=== PATIENT | male | born 1965 | race Caucasian/White ===

== ENCOUNTER 2023-07-13 07:57 | Emergency (ER) | payer OTHER, SELFPAY ==
[2023-07-13 08:06] VITALS: BP 148/101; PULSE 87; RESP 16; TEMP 36.6; O2SAT 97; BMI 32.2
--- NOTE | 2023-07-13 08:22 | ED.GENADULT ---
HPI - General Adult General Chief complaint: General Medical Stated complaint: Swelling in throat Time Seen by Provider: 07/13/23 08:08 Source: patient Mode of arrival: ambulatory Limitations: no limitations History of Present Illness HPI narrative: This is a 58-year-old male with history of diabetes, hypertension, hereditary angioedema with multiple intubations, tracheostomy with decannulation here with complaints of waking with feeling like his throat is swelling. He denies any recent URI symptoms. He denies any difficulty swallowing or breathing. He does feel that his voice is hoarse which is not his baseline. Additionally patient is on daily danazol. He has an appointment in August for prophylactic medication for hereditary angioedema Related Data Previous Rx's Medication Instructions Recorded amoxicillin 500 mg capsule 500 mg PO BID #20 caps 07/13/23 Allergies Allergy/AdvReac Type Severity Reaction Status Date / Time nut - unspecified [nut] Allergy Unknown UNKNOWN Unverified 04/06/20 15:04 Review of Systems Review of Systems: Yes all other systems are reviewed and are negative Constitutional: Constitutional: Reports no additional constitutional complaints, Denies body ache(s), Denies chills, Denies fever(s), Denies headache(s) and Denies weakness Eyes: Eyes: Reports no additional eye complaints and Denies change in vision ENT: Reports system reviewed and no additional complaints, except as documented, Denies dizziness, Denies headache(s), Denies nasal congestion, Denies nasal discharge, Denies neck pain and Reports sore throat Cardiovascular: Cardiovascular: Reports no additional cardiovascular complaints, Denies chest pain, Denies leg edema and Denies dyspnea Respiratory: Respiratory: Reports no additional respiratory complaints, Denies cough and Denies dyspnea Gastrointestinal: Gastrointestinal: Reports no additional gastrointestinal complaints, Denies abdominal pain, Denies diarrhea, Denies nausea and Denies vomiting Genitourinary: Genitourinary: Denies urinary incontinence Musculoskeletal: Musculoskeletal: Reports no additional musculoskeletal complaints, Denies back pain, Denies arthralgias, Denies joint swelling, Denies neck pain, Denies numbness and Denies tingling Integumentary/Breasts: Skin/Breast: Reports system reviewed and no additional complaints, except as docu and Denies rash Neurologic: Reports system reviewed and no additional complaints, except as documented, Denies Abnormal speech present, Denies dizziness, Denies headache(s), Denies numbness, Denies tingling and Denies weakness [facility] Past Medical History Attestation statement: The following information was validated with the patient. Source: old records reviewed and nursing notes reviewed Social History Social History Smoked in Last 30 Days: No Advance Directives: No Advance Directives Information Provided: Yes Physical Exam ED Vital Signs: Vital Signs - 24 hr 07/13/23 08:06 07/13/23 09:25 07/13/23 10:04 Temperature 97.8 F Pulse Rate 87 77 77 Respiratory Rate 16 12 14 Blood Pressure 148/101 H 144/95 H 132/87 Pulse Oximetry 97 95 96 Oxygen Delivery Method Room Air Room Air Room Air BMI result Body Mass Index 32.2 Const General: cooperative, healthy appearing, comfortable and no acute distress Orientation/consciousness: patient oriented x3 Limitations: no limitations HENMT Head: Yes normal to inspection Ears: hearing grossly normal bilaterally and TM's normal bilaterally General nose exam: Normal external nose present Face and sinus: Yes normal facial exam Mouth: Normal oral and palatal mucosa present, lip normal and tongue normal Throat: Yes posterior oropharynx normal, Yes uvula midline, Yes abnormal tonsil (Bilateral erythema) and No peritonsillar mass Eyes General: appearance normal, both eyes and all related structures Pupils: Equal, round and reactive pupils present Neck Other: No stridor Neck: Yes normal visual inspection, Yes full ROM, Yes no lymphadenopathy and Yes no meningeal signs Chest Chest palpation & inspection: normal inspection of the chest Resp Effort & Inspection: normal respiratory effort Auscultation: clear to auscultation bilaterally Cardio Rate: regular rate Rhythm: regular rhythm Peripheral pulses: Peripheral pulses 2+ throughout GI Inspection: Yes normal to inspection Palpation (GI): Soft to palpation and nontender Auscultation: normal bowel sounds Back/Spine/Pelvis Thoracic/Lumbar Spine: thoracic and lumbar spine normal to inspection Skin General skin exam: no rashes or lesions noted Neuro General: patient oriented x3, no meningeal signs, no focal motor deficits and normal sensation to monofilament Cranial nerves: Yes Equal, round and reactive pupils present Cognition (Neuro): normal cognition Speech: No Abnormal speech present Gait exam (Neuro): Normal gait present Motor exam (neuro): 5/5 motor strength present throughout Extrem General: Yes normal to inspection, Yes no pedal edema and Yes no calf tenderness Course Course Course Narrative: Labs are unremarkable. COVID viral screen are negative. Strep screen is positive. Medications Administered Discontinued Medications Generic Name Dose Route Start Last Admin Trade Name Kamari PRN Reason Stop Dose Admin Diphenhydramine HCl 50 mg 07/13/23 08:17 07/13/23 08:30 Diphenhydramine Hcl 50 Mg/Ml Vial IVPUSH 07/13/23 08:18 50 mg ONCE ONE Administration Famotidine 20 mg 07/13/23 08:16 07/13/23 08:30 Famotidine/Pf 20 Mg/2 Ml Vial IVPUSH 07/13/23 08:17 20 mg ONCE ONE Administration Methylprednisolone Sodium Succinate 125 mg 07/13/23 08:16 07/13/23 08:30 Methylprednisolone Sod Succ 125 Mg/2 Ml Vial IVPUSH 07/13/23 08:17 125 mg ONCE ONE Administration Medical Decision Making Medical Decision Making [facility] Narrative: This is a 58-year-old male with history of diabetes, hypertension, hereditary angioedema with multiple intubations, tracheostomy with decannulation here with complaints of waking with feeling like his throat is swelling.? He denies any recent URI symptoms.? He denies any difficulty swallowing or breathing.? He does feel that his voice is hoarse which is not his baseline. Additionally patient is on daily danazol.? He has an appointment in August for prophylactic medication for hereditary angioedema? On arrival airway is open. No angioedema noted. Posterior oropharynx is clear. There is no stridor or wheezing on exam. Due to his significant medical history and risk for progression I will have nursing place a PIV and give Benadryl, Solu-Medrol, famotidine. Both my attending and charge nurse were notified of the patient. He will be brought to a room where monitor him close Differential Diagnosis Differential Diagnoses: The differential diagnosis associated with the presentation includes Hereditary angioedema Viral syndrome, pharyngitis Low concern for epiglottitis, RPA, REPORTER, ludwigs angina Admission/Observation Consideration of admission/observation: Escalation of care including admission/observation considered No angioedema or airway involvement on exam. The strep screen is positive. Exam is consistent with strep pharyngitis. Low concern for angioedema with period of observation in the ER with no progressive symptoms. I do not believe the patient needs to be admitted for observation Lab Data MDM Lab Attestation statement: I reviewed the patient's lab results. Strep screen + 07/13/23 08:24 07/13/23 08:24 Labs: Lab Results 07/13/23 07/13/23 07/13/23 Range/Units 08:24 08:45 09:25 WBC 6.9 (4.8-10.8) X10*3/uL RBC 6.06 H (4.60-5.80) X10*6/uL Hgb 17.3 (14.0-18.0) g/dl Hct 50.4 (42.0-52.0) % MCV 83.2 (80.0-98.0) fL MCH 28.5 (27.0-33.0) pg MCHC 34.3 (31.0-36.0) g/dl RDW 13.6 (11.0-16.0) % Plt Count 253 (160-400) X10*3/uL MPV 11.5 (9.4-12.4) fL Immature Gran % (Auto) 0.3 (0.0-0.4) % Neut % (Auto) 44.4 L (45-73) % Lymph % (Auto) 39.4 (20-40) % [place] % (Auto) 11.1 H (2-11) % Eos % (Auto) 4.4 H (0-4) % Baso % (Auto) 0.4 (0-2) % Lymph # (Auto) 2.7 (1.2-4.9) X10*3/uL [place] # (Auto) 0.8 (0.1-1.2) X10*3/uL Eos # (Auto) 0.3 (0.0-0.4) X10*3/uL Baso # (Auto) 0.0 (0.0-0.2) X10*3/uL Abs Immat Gran (auto) 0.02 (0.00-0.03) X10*3/uL Absolute Neuts (auto) 3.1 (2.0-8.3) x10*3/uL Absolute Nucleated RBC 0.000 (0.0-0.012) X10*3/uL Nucleated RBC % (auto) 0.0 (0.0-0.2) /100WBC Sodium 138 (135-145) mmol/L Potassium 3.5 (3.3-5.1) mmol/L Chloride 103 (96-108) mmol/L Carbon Dioxide 25 (22-29) mmol/L Anion Gap 14 (12-20) BUN 7 L (9-16) mg/dL Creatinine 1.23 (0.5-1.4) mg/dL Estim Creat Clear Calc 77.3 Estimated GFR > 60 Random Glucose 163 H (60-115) mg/dL Calcium 9.0 (8.4-10.2) mg/dL COVID-19 (KRYSTAL) Negative (Negative) COVID-19 Clin Com See Note Influenza Type A (PCR) NEGATIVE (Negative) Influenza Type B (PCR) NEGATIVE (Negative) RSV RNA Qual (PCR) NEGATIVE (Negative) SARS-CoV-2 RNA (RT-PCR) NEGATIVE (Negative) S. pyogenes GrpA FELIX Positive A (Negative) Tests considered The following testing was considered but not selected: No concern for REPORTER, RPA, Haja's angina to suggest need for CT imaging Prescription Management I considered prescription management with: Antibiotic Chronic Conditions Patient?s care impacted by: Diabetes Discharge Plan Discharge Clinical Impression: Acute streptococcal pharyngitis Patient Disposition: Home, Self-Care Instructions: Pharyngitis (ED) Additional Instructions: Take the antibiotics as prescribed After 24 hours throughout your toothbrush in by anyone Return for any difficulty breathing, difficulty swallowing as discussed Prescriptions: New amoxicillin 500 mg capsule 500 mg PO BID Qty: 20 0RF Referrals: Misael Cabrera MD [Primary Care Provider] - 1 week Interventions: ED Discharge Assessment Last Done: 07/13/23 10:24 Discharge Date/Time: 07/13/23 10:24
[2023-07-13 08:28] LABS: MANUAL DIFF FLAG NO
[2023-07-13 08:29] LABS: Basophils Percent Auto 0.4 % (0-2); Eosinophils Absolute Auto 0.3 X10*3/uL (0.0-0.4); Eosinophils Percent Auto 4.4 % (0-4); Hematocrit 50.4 % (42.0-52.0); Hemoglobin 17.3 g/dl (14.0-18.0); Imm Gran Abs Auto 0.02 X10*3/uL (0.00-0.03); Imm Gran Pct Auto 0.3 % (0.0-0.4); Lymphocytes Absolute Auto 2.7 X10*3/uL (1.2-4.9); Lymphocytes Percent Auto 39.4 % (20-40); Mean Corpuscular HGB Conc 34.3 g/dl (31.0-36.0); Mean Corpuscular Hemoglobin 28.5 pg (27.0-33.0); Mean Corpuscular Volume 83.2 fL (80.0-98.0); Mean Platelet Volume 11.5 fL (9.4-12.4); Monocytes Absolute Auto 0.8 X10*3/uL (0.1-1.2); Monocytes Percent Auto 11.1 % (2-11); Neutrophils Absolute Auto 3.1 x10*3/uL (2.0-8.3); Neutrophils Percent Auto 44.4 % (45-73); Platelet Count 253 X10*3/uL (160-400); Red Blood Count 6.06 X10*6/uL (4.60-5.80); Red Cell Distribution Width 13.6 % (11.0-16.0); White Blood Count 6.9 X10*3/uL (4.8-10.8)
[2023-07-13] MEDS: methylPREDNISolone Sod Succ 125 MG/2 ML VIAL IVPUSH (08:30)
[2023-07-13] MEDS: Famotidine/PF 20 MG/2 ML VIAL IVPUSH (08:30)
[2023-07-13] MEDS: diphenhydrAMINE HCL 50 MG/ML VIAL IVPUSH (08:30)
[2023-07-13 08:44] LABS: Anion Gap 14 (12-20); Blood Urea Nitrogen 7 mg/dL (9-16); Carbon Dioxide 25 mmol/L (22-29); Chloride 103 mmol/L (96-108); Creatinine Clr Calc Pharmacy 77.3; Estimated Glomerular Filt Rate > 60; Glucose Random 163 mg/dL (60-115); Potassium 3.5 mmol/L (3.3-5.1); Sodium 138 mmol/L (135-145)
--- NOTE | 2023-07-13 08:57 | PC.NURSE ---
patient resting quietly in stretcher in [place] of nurses station, patient has water at bedside, taking sips occasionally, patient managing own secretions and airway. respirations equal and unlabored. 18# placed in the Left AC
[2023-07-13 09:04] LABS: COVID-19 Test Negative (Negative); IDNOW Serial# BCCEAD1C
[2023-07-13 09:25] VITALS: BP 144/95; PULSE 77; RESP 12; O2SAT 95
[2023-07-13 09:29] LABS: Influenza A PCR NEGATIVE (Negative); Influenza B PCR NEGATIVE (Negative); Resp Syncy Virus RNA Qual PCR NEGATIVE (Negative); SARS COV2 PCR INHOUSE NEGATIVE (Negative)
[2023-07-13 09:48] LABS: IDNOW Serial# 08D9AD1C; Strep A Nucleic Acid Positive (Negative)
[2023-07-13 10:04] VITALS: BP 132/87; PULSE 77; RESP 14; O2SAT 96
== END 2023-07-13 10:24 | disposition home or self-care (01) ==
PROVIDERS: Nurse Practitioner Family; Emergency Provider Student in an Organized Health Care Education/Training Program; PCP Internal Medicine
DX: J02.0 Streptococcal pharyngitis (principal); E11.9 Type 2 diabetes mellitus without complications; I10 Essential (primary) hypertension; Z79.899 Other long term (current) drug therapy; Z11.52 Encounter for screening for COVID-19; Z20.828 Contact with and (suspected) exposure to other viral communicable diseases
CPT/HCPCS: 0241U; 80048; 85025; 87635; 87651; 96374; 96375; 99284; J1200; J2930

== ENCOUNTER 2024-04-03 05:57 | Emergency (ER) | payer OTHER, SELFPAY ==
[2024-04-03] VITALS (9 sets, daily range): BP systolic 105–144; BP diastolic 71–97; PULSE 84–107; RESP 15–22; TEMP 36.6–37.1; O2SAT 94–98; BMI 30.2
--- NOTE | ~2024-04-03 | XR_ITS ---
EXAMINATION: XR SOFT TISSUE NECK CLINICAL INDICATION: Voice changes. History of epiglottitis. COMPARISON: CT neck August 25, 2012 TECHNIQUE: 2 views of the soft tissue neck were obtained. FINDINGS: Soft tissue films of the neck demonstrate a normal larynx, pharynx and upper trachea. No soft tissue swelling or opaque foreign body is demonstrated. Mild degenerative changes of the visualized cervical spine. Soft tissue calcifications within the neck are likely vascular in nature. Visualized lung apices are well aerated. XR/XR soft tissue neck IMPRESSION: Unremarkable radiographs of the neck. Electronically signed by: Vini Das MD 04/03/2024 09:02 AM EDT
--- NOTE | ~2024-04-03 | XR_ITS ---
EXAMINATION: XR CHEST CLINICAL INFORMATION: Shortness of breath COMPARISON: Chest x-ray September 03, 2017 TECHNIQUE: 2 views of the chest were obtained. FINDINGS: Cardiac silhouette is normal in size. The lungs are well aerated. There is no lobar consolidation. No pleural effusion or pneumothorax. Mild degenerative changes of the spine. XR/XR chest 2V IMPRESSION: No acute pulmonary pathology. Electronically signed by: Vini Das MD 04/03/2024 08:16 AM EDT
[2024-04-03 06:23] LABS: IDNOW Serial# 6674DD1D; Strep A Nucleic Acid Negative (Negative)
--- NOTE | 2024-04-03 06:25 | PC.NURSE ---
pt from wr to ed13 airway patent. pt reports hx of angioedema with need for intubation states these sx feel different but has some difficulty swallowing/breathing. sats 98% on RA. pt placed on heart monitor and continuous o2 monitoring. call [facility] within reach.
--- NOTE | 2024-04-03 06:45 | ED_ITS ---
HPI - URI/Sore Throat General Chief Complaint: Upper Respiratory Symptoms Stated Complaint: Sore Throat Time Seen by Provider: 04/03/24 06:45 Source: patient Mode of arrival: ambulatory Limitations: no limitations History of Present Illness ED Provider: Edita Dinh PA-C HPI Narrative: 58 yo male with history of asthma, hereditary angioedema requiring intubation and tracheostomy in the past presents to the ER for evaluation of sore throat that started yesterday and has been worsening. He states he started having runny nose, nasal congestion and sore throat yesterday. He was generally feeling unwell. He went out drinking last night and was unable to sleep last night due to dry cough, sore throat and some difficulty breathing. He reports increased nasal congestion making it hard for him to breathe. Denies any chest pain. He denies any swelling of his lips or tongue. He states he gets nervous every time he gets a sore throat because he is worried about angioedema. MD elicited complaint: cough, sore throat, rhinorrhea and nasal congestion Pertinent past history: asthma and other (Angioedema) Onset (ago): day(s) (1) Consistency: progressively worsening Severity: moderate Description of mucous: clear Able to tolerate fluids by mouth: Yes Exacerbating factors: swallowing and supine positioning Relieving factors: nothing Associated symptoms: headache, rhinorrhea, nasal congestion, sore throat and cough Treatments prior to arrival: none Related Data Previous Rx's ?Medication ?Instructions ?Recorded amoxicillin 500 mg capsule 500 mg PO BID #20 caps 07/13/23 amoxicillin 875 mg-potassium 1 tab PO BID #14 tabs 04/03/24 clavulanate 125 mg tablet prednisone 50 mg tablet 50 mg PO DAILY #5 tabs 04/03/24 Allergies Allergy/AdvReac Type Severity Reaction Status Date / Time No Known Allergies Allergy Verified 04/03/24 06:03 Review of Systems Review of Systems: Yes all other systems are reviewed and are negative PMFSH Social History Social History Alcohol intake: current Alcohol intake frequency: 3 or more drinks per day Alcohol type: beer Smoked in Last 30 Days: No Use of substances other than those prescribed or required for medical reasons: No Advance Directives: No Advance Directives Information Provided: Yes Physical Exam Vital Signs: Vital Signs: Last Vital Signs Temp 98 F 04/03/24 14:25 Pulse 88 04/03/24 14:25 Resp 17 04/03/24 14:25 BP 144/78 H 04/03/24 14:25 Pulse Ox 98 04/03/24 14:25 O2 Del Method Room Air 04/03/24 14:25 BMI result Body Mass Index 30.2 Appearance: Alert. Oriented X3. Anxious, sitting at the edge of the bed, coughing, taking deep breaths. Head: normocephalic, atraumatic. Eyes: Pupils equal, round and reactive to light. ENT: Pharynx with moderate generalized posterior erythema. No tonsillar swelling or exudate. Uvula midline. airway widely patent Neck: Normal inspection. Neck supple. No swelling. CVS: Normal heart rate and rhythm. Pulses normal. Respiratory: No respiratory distress. Breath sounds coarse throughout without any wheezes or rhonchi. Dry cough. Abdomen: Soft and nontender. +BS x4 Skin: Skin warm and dry. Normal skin color. Normal skin turgor. No rashes. Extremities: No lower extremity edema. No joint swelling. Neuro/psych: Oriented X 3. No motor deficit. No sensory deficit. CN II-XII intact. Normal speech and cognition. anxious Course Reevaluation(s) Reevaluation #1: upon re-evaluation patient reports a change in his voice. Upon further questioning he states for his hereditary angioedema he is on an oral medication that he takes for prevention. He has been noncompliant with his medication for the last 2 weeks because his doctor was unable to fill it, once it was able to be sent to the pharmacy he was unable to pick it up because [place]. It is ready for pickup at [facility] pharmacy but they are closed on the weekend. Patient was treated with oral Ativan, prednisone and he reports some improvement in his voice and sore throat. Given his history, Dr. Roberto involved in the patient's care who evaluated the patient at the bedside. Planning for x-ray of the soft tissue of the neck, racemic epinephrine and visual inspection of the epiglottis and vocal cords with microscope camera if able. Unable to contact patient's governor assembler hydraulic, no one on- call in the office today. Time: 08:32 Reevaluation #2: Spoke with ear nose and throat provider at [facility]. Photos of the patient's bedside scope were sent to her. She is reassured. The epiglottis and vocal cords appeared normal, she stated that the pharyngeal wall edema did not appear to be typical of hereditary angioedema, was not boggy. At this time she is recommending observation in the emergency room for 4-6 hours with hope for discharge. If the patient declines he is accepted to [facility] for ENT consultation and evaluation. Patient updated on plan of care. IV Benadryl and Pepcid ordered. Time: 10:17 Reevaluation #3: Patient was evaluated and monitored very closely in the emergency department for 8 hours. It he had no progression of his symptoms, in fact had improvement in his symptoms after some treatments including steroids, antihistamines, breathing treatments. At this time comfortable discharge home with oral antibiotics, steroids and close outpatient follow-up. Strict return precautions were discussed and patient expressed understanding. Physician observation discontinued at this time. He does not require inpatient level of care at this time. He is awake, alert, oriented x3. His airway is patent and he is saturating well on room air. His voice still has some minor changes but he is breathing comfortably and has improved pain. He is stable for discharge home. Time: 14:16 Additional Reevaluation(s): Supervising physician note: I saw this patient with the physician assistant county attorney. The patient was awake and alert. He had a slightly hoarse voice but did not seem in respiratory distress. He has a history of hereditary angioedema. He has some erythema of his posterior pharynx without tonsillar enlargement (he does not have significant tonsillar tissue). He also has symptoms of an upper respiratory infection. We performed fiberoptic nasopharyngoscopy to evaluate his epiglottis, vocal cords and his supraglottic tissues. This was done after administration of racemic epinephrine as well as aerosolized lidocaine. A Uro jet was used for left nostril lubrication. Using a nasopharyngoscope we were able to visualize the epiglottis and vocal cords and surrounding structures. The epiglottis appeared normal. The vocal cords appeared normal. There may have been some minimal edema of the arytenoids. There was some mild edema of the surrounding tissues. We were able to take images of these findings that were used to discuss the case with oracle identity management consultant. The patient was observed for many hours without any deterioration. The patient will be discharged to follow up with his governor assembler hydraulic on Friday or return to the ER if worse before then. He has a danazol prescription waiting for him at the [facility] pharmacy which he will pick him on Friday. Consultations Consultation #1: ENT at [facility] Medications Administered Discontinued Medications Generic Name Dose Route Start Last Admin Trade Name Kamari PRN Reason Stop Dose Admin Albuterol Sulfate 2.5 mg 04/03/24 07:29 04/03/24 07:32 Albuterol Sulfate (0.083%) 2.5 Mg/3 Ml Vial.Neb INHALE 04/03/24 07:30 2.5 m g ONCE ONE Administration Dexamethasone Sodium Phosphate 6 mg 04/03/24 08:33 04/03/24 08:58 Dexamethasone Sod Phosphate 4 Mg/Ml Vial IVPUSH 04/03/24 08:34 6 mg ONCE ONE Administration Diphenhydramine HCl 50 mg 04/03/24 09:57 04/03/24 10:09 Diphenhydramine Hcl 50 Mg/Ml Vial IVPUSH 04/03/24 09:58 50 mg ONCE ONE Administration Epinephrine 0.5 ml 04/03/24 08:24 04/03/24 08:37 Racepinephrine Hcl 0.5 Ml Vial.Neb INHALE 04/03/24 08:25 0.5 ml ONCE ONE Administration Famotidine 20 mg 04/03/24 09:57 04/03/24 10:09 Famotidine/Pf 20 Mg/2 Ml Vial IVPUSH 04/03/24 09:58 20 mg ONCE ONE Administration Guaifenesin/Codeine Phosphate 10 ml 04/03/24 06:52 04/03/24 07:18 Guaifen/Codeine Sf 200/20/10ml 10 Ml Liquid PO 04/03/24 06:53 10 ml ONCE ONE Administration Ibuprofen 600 mg 04/03/24 06:52 04/03/24 07:18 Ibuprofen 600 Mg Tablet PO 04/03/24 06:53 600 mg ONCE ONE Administration Lidocaine HCl 15 ml 04/03/24 06:52 04/03/24 07:18 Lidocaine Hcl Viscous 2 % 15 Ml Solution MUCOUS MEM 04/03/24 06:53 15 ml ONCE ONE Administration Lidocaine HCl 1 appl 04/03/24 08:59 04/03/24 09:17 Lidocaine Hcl 4 % Nfvomo-U-Yks 4 Ml TOPICAL 04/03/24 09:00 1 appl ONCE ONE Administration Lidocaine HCl 10 ml 04/03/24 08:59 04/03/24 09:17 Lidocaine Hcl 2 % Urojet 10 Ml Jel.Pf.Gerber TOPICAL 04/03/24 09:00 10 ml ONCE ONE Administration Lorazepam 1 mg 04/03/24 07:37 04/03/24 07:43 Lorazepam 1 Mg Tablet PO 04/03/24 07:38 1 mg ONCE ONE Administration Prednisone 40 mg 04/03/24 07:38 04/03/24 07:43 Prednisone 20 Mg Tablet PO 04/03/24 07:39 40 mg ONCE ONE Administration Medical Decision Making Medical Decision Making [facility] Narrative: 58-year-old male with history of hereditary angioedema presents to the ER for evaluation of sore throat since yesterday, new voice changes this morning. He also has other URI symptoms including nasal congestion, runny nose, cough. He reports difficulty breathing on arrival and is anxious. He is worried about his angioedema. On physical exam he has significant posterior pharyngeal erythema without any evidence of tonsillar swelling or exudate. No evidence of abscess. Given his other URI symptoms this is most likely a viral pharyngitis however given his history he is certainly high risk. Patient was treated with IV and p.o. steroids along with breathing treatments. The larynx was visualized with a b ronchoscope after anesthetizing the nares and the back of the throat w/ Dr. Roberto. His epiglottis and vocal cords appeared normal to inspection with some pharyngeal wall edema, not boggy like typical hereditary angioedema is seen. Patient was monitored for several hours in the emergency department with no worsening of his symptoms. He was starting to feel better. At this time stable for discharge home with oral antibiotics and steroids. Strict return precautions were discussed Differential Diagnosis Differential Diagnoses: The differential diagnosis associated with the presentation includes Hereditary angioedema, viral pharyngitis, URI, tonsillitis, retropharyngeal abscess, epiglottitis, supraglottitis Admission/Observation Consideration of admission/observation: Escalation of care including admission/observation considered Consult Healthcare Provider Management of the patient was discussed with: Computer Operations Analyst ENT at [facility] Lab Data [facility] Lab Attestation statement: I reviewed the patient's lab results. Labs: Lab Results 04/03/24 04/03/24 Range/Units 06:11 09:14 Influenza Type A (PCR) NEGATIVE (Negative) Influenza Type B (PCR) NEGATIVE (Negative) RSV RNA Qual (PCR) NEGATIVE (Negative) SARS-CoV-2 RNA (RT-PCR) NEGATIVE (Negative) S. pyogenes GrpA FELIX Negative (Negative) Blood Type B Positive Antibody Screen NEGATIVE Independent Interpretation I performed an independent interpretation of an: Plain X-Ray Interpretation: Normal visualization of the epiglottis on soft tissue of the neck Chest x-ray without any focal consolidation or opacities Radiology Impression Discussion of test interpretation with radiology: I have reviewed the radiologist's reading. External Record Review External record reviewed: Outpatient record, Prior outpatient labs and Prior outpatient radiology Tests considered The following testing was considered but not selected: CT scan of the soft tissues of the neck was considered Prescription Management I considered prescription management with: Pain Medication, Antibiotic and Other Chronic Conditions Patient?s care impacted by: Other (Hereditary angioedema) Procedures Laryngoscopy Sedation/Analgesia: viscous lidocaine Technique: indirect nasal laryngoscopy Findings: normal larynx, normal epiglottis, normal vocal cords, no foreign body and normal vocal cord function Complications: none Post-procedure exam: awake, alert, normal BP, normal HR and normal O2 sat Critical Care Time Critical Care Time Critical Care Time: Yes Total Critical Care Time: 66 Attestation: I have personally provided critical care time exclusive of time spent on separately billable procedures. Time includes review of lab data, radiology results, discussion with consultants, multiple bedside re-evaluations of airway and respiratory status and monitoring for potential decompensation. Intervention performed as documented. Discharge Plan Discharge Clinical Impression: Upper respiratory infection Qualifiers: URI type: supraglottitis Airway obstruction: without obstruction Qualified Code(s): J04.30 - Supraglottitis, unspecified, without obstruction Patient Disposition: Home, Self-Care Instructions: Pharyngitis (ED) Additional Instructions: You tested negative for strep throat, COVID, flu, RSV. Your neck x-ray was normal. The visualization of your epiglottis and vocal cords was normal. Take the prescribed steroids as directed, complete the entire course and do not miss any doses. Take the prescribed antibiotics as directed, complete the entire course and do not miss any doses Use warm salt water gargles 3 times per day. You can also use Chloraseptic spray or Cepacol lozenges as needed for sore thoat. Drink plenty of fluids and rest. Follow-up with your doctor. If you develop new or worsening symptoms call 911 or come back to the ER for further evaluation. Prescriptions: New amoxicillin-pot clavulanate 875-125 mg tablet 1 tab PO BID Qty: 14 0RF prednisone 50 mg tablet 50 mg PO DAILY Qty: 5 0RF No Action amoxicillin 500 mg capsule 500 mg PO BID Qty: 20 0RF Referrals: Misael Cabrera MD [Primary Care Provider] - Interventions: ED Discharge Assessment Last Done: 04/03/24 14:25 Discharge Date/Time: 04/03/24 14:26 Print Language: Rw[place]an
[2024-04-03 06:54] LABS: Influenza A PCR NEGATIVE (Negative); Influenza B PCR NEGATIVE (Negative); Resp Syncy Virus RNA Qual PCR NEGATIVE (Negative); SARS COV2 PCR INHOUSE NEGATIVE (Negative)
[2024-04-03] MEDS: guaiFEN/Codeine SF 200/20/10ML 10 ML LIQUID PO (07:18)
[2024-04-03] MEDS: Ibuprofen 600 MG TABLET PO (07:18)
[2024-04-03] MEDS: Lidocaine HCl Viscous 2 % 15 ML SOLUTION MUCOUS MEM (07:18)
[2024-04-03] MEDS: Albuterol Sulfate (0.083%) 2.5 MG/3 ML VIAL.NEB INHALE (07:32)
[2024-04-03] MEDS: LORazepam 1 MG TABLET PO (07:43)
[2024-04-03] MEDS: predniSONE 20 MG TABLET 40 MG PO (07:43)
--- NOTE | 2024-04-03 08:08 | PC.NURSE ---
Patient sitting upright in chair at bedside using phone to talk with son. Pt states feels a little less anxious and but is still hoarse and clearing throat often, pt hx of multiple intubations and trach and feels he is heading that way again. Pt states non compliance wiht home medication of danazol for his HIGGINS but d/t MD not refilling rx.
--- NOTE | 2024-04-03 08:30 | PC.NURSE ---
pt states he does drink regularly about 5 days a week and about 12 beers daily but denies going through any time of withdrawal in past. pt states last drink was at 2am this morning.
[2024-04-03] MEDS: Racepinephrine HCL 0.5 ML VIAL.NEB INHALE (08:37)
[2024-04-03] MEDS: dexAMETHasone sod phosphate 4 MG/ML VIAL 6 MG IVPUSH (08:58)
[2024-04-03] MEDS: Lidocaine HCl 4 % Laryng-O-Jet 4 ML 1 APPL TOPICAL (09:17)
[2024-04-03] MEDS: Lidocaine HCl 2 % Urojet 10 ML JEL.PF.APP TOPICAL (09:17)
[2024-04-03] MEDS: diphenhydrAMINE HCL 50 MG/ML VIAL IVPUSH (10:09)
[2024-04-03] MEDS: Famotidine/PF 20 MG/2 ML VIAL IVPUSH (10:09)
== END 2024-04-03 14:26 | disposition home or self-care (01) ==
PROVIDERS: Emergency Provider Emergency Medicine; PCP Internal Medicine
DX: J04.30 Supraglottitis, unspecified, without obstruction (principal); D84.1 Defects in the complement system; Z03.818 Encounter for observation for suspected exposure to other biological agents ruled out; R05.9 Cough, unspecified; J02.9 Acute pharyngitis, unspecified
CPT/HCPCS: 31505; 0241U; 70360; 71046; 86850; 86900; 86901; 87651; 94640; 96374; 96375; 99285; J1100; J1200

== ENCOUNTER 2025-01-06 10:21 | Emergency (ER) | payer OTHER, SELFPAY ==
[2025-01-06 10:33] VITALS: BP 134/84; PULSE 97; RESP 20; TEMP 36.3; O2SAT 98; BMI 30.1
[2025-01-06 11:27] LABS: MANUAL DIFF FLAG NO
[2025-01-06 11:28] LABS: Basophils Percent Auto 0.5 % (0-2); Eosinophils Absolute Auto 0.1 X10*3/uL (0.0-0.4); Eosinophils Percent Auto 0.7 % (0-4); Hematocrit 49.7 % (42.0-52.0); Hemoglobin 18.2 g/dl (14.0-18.0); Imm Gran Abs Auto 0.02 X10*3/uL (0.00-0.03); Imm Gran Pct Auto 0.2 % (0.0-0.4); Lymphocytes Absolute Auto 2.3 X10*3/uL (1.2-4.9); Lymphocytes Percent Auto 26.5 % (20-40); Mean Corpuscular HGB Conc 36.6 g/dl (31.0-36.0); Mean Corpuscular Hemoglobin 30.3 pg (27.0-33.0); Mean Corpuscular Volume 82.7 fL (80.0-98.0); Monocytes Absolute Auto 0.8 X10*3/uL (0.1-1.2); Monocytes Percent Auto 9.6 % (2-11); Neutrophils Absolute Auto 5.5 x10*3/uL (2.0-8.3); Neutrophils Percent Auto 62.5 % (45-73); Platelet Count 285 X10*3/uL (160-400); Red Blood Count 6.01 X10*6/uL (4.60-5.80); Red Cell Distribution Width 13.1 % (11.0-16.0); White Blood Count 8.7 X10*3/uL (4.8-10.8)
--- NOTE | 2025-01-06 11:32 | ED.DENTAL ---
HPI - Dental/Oral General Chief complaint: Dental/Oral Stated complaint: Oral infection Time Seen by Provider: 01/06/25 11:27 Source: patient Mode of arrival: ambulatory Limitations: no limitations History of Present Illness ED Provider: DR. Coreas HPI Narrative: 59-year-old male with history of idiopathic angioedema with previous intubations came in for evaluation of right facial swelling and possible dental abscess. Patient is been having pain in right lower 2nd molar tooth x2 months patient did not seek dental care, for the last 2-3 days patient noticed swelling and severe pain in the right face, no fever, no chills, no difficulty breathing. Teeth map:  1. Tenderness and swelling with fluctuation Related Data Previous Rx's ?Medication ?Instructions ?Recorded amoxicillin 500 mg capsule 500 mg PO BID #20 caps 07/13/23 amoxicillin 875 mg-potassium 1 tab PO BID #14 tabs 04/03/24 clavulanate 125 mg tablet prednisone 50 mg tablet 50 mg PO DAILY #5 tabs 04/03/24 amoxicillin 875 mg-potassium 1 tab PO BID #14 tabs 01/06/25 clavulanate 125 mg tablet Allergies Allergy/AdvReac Type Severity Reaction Status Date / Time No Known Allergies Allergy Verified 01/06/25 10:36 Review of Systems Review of Systems: All other systems are reviewed and are negative Constitutional: Reports as per HPI and Reports no additional constitutional complaints Eyes: Reports as per HPI and Reports no additional eye complaints Reports system reviewed and no additional complaints, except as documented Cardiovascular: Reports as per HPI and Reports no additional cardiovascular complaints Respiratory: Reports as per HPI and Reports no additional respiratory complaints Gastrointestinal: Reports as per HPI and Reports no additional gastrointestinal complaints Genitourinary: Reports no additional female genitourinary complaints Musculoskeletal: Reports no additional musculoskeletal complaints Skin/Breast: Reports system reviewed and no additional complaints, except as docu Psychiatric: Reports no additional psychiatric complaints Endocrine: Reports no additional endocrine complaints Hematologic/Lymphatic: Reports no additional hematologic/lymphatic complaints Allergic/Immunologic: Reports no additional allergic/immunologic complaints Reports system reviewed and no additional complaints, except as documented and Reports Abnormal speech present [facility] Social History Social History Alcohol intake: current Alcohol intake frequency: 3 or more drinks per day Alcohol type: beer Advance Directives: No Advance Directives Information Provided: Yes Physical Exam Vital Signs: Vital Signs: Last Vital Signs Temp 97.3 F 01/06/25 10:33 Pulse 97 01/06/25 10:33 Resp 20 01/06/25 10:33 BP 134/84 01/06/25 10:33 Pulse Ox 98 01/06/25 10:33 O2 Del Method Room Air 01/06/25 10:33 BMI result Body Mass Index 30.1 Vital signs have been reviewed and appear to be correct. Blood pressure elevated. Heart rate normal. Respiratory rate normal. Temperature normal. Oxygen saturation normal. Appearance: Alert. Oriented X3. No acute distress. Head: Normal external exam. Normocephalic. Atraumatic. No Warren signs noted. No raccoon eyes noted Facial: Right facial swelling, +dental abscess next to the 2nd lower right molar tooth with a decay, patent airway, uvula is midline, no stridor. Eyes: PERRLA. EOMI. Conjunctiva and sclera normal. Eyelids normal. ENT: TM's Normal. Pharynx normal. Uvula midline. Moist mucous membranes. No trismus noted. No drooling noted. No muffled voice noted. Neck: Normal inspection. Neck supple. FROM. No adenopathy. Thyroid Normal. No meningeal signs. No neck mass noted. CVS: Normal heart rate and rhythm. Heart sound normal. No murmurs noted. Pulses normal throughout. Respiratory: No respiratory distress. Painless inspiration. Breath sounds normal. No wheezes/rales/rhonchi noted. Chest nontender. No accessory muscle usage noted or decreased air movement noted. Abdomen: Soft and nontender. Bowel sounds normal in all 4 quadrants. No distention noted. No organomegaly noted. No visible injury noted. Back: No CVA tenderness. Full range of motion noted. Skin: Skin warm and dry. Normal skin color. Normal skin turgor. No rashes/lesions/lacerations noted. Extremities: No lower extremity edema. Extremities exhibit normal range of motion. Extremities nontender. Neuro: Oriented X 3. Cranial nerve exam: II-XII are grossly intact No motor deficit. No sensory deficit. Reflexes normal. Course Reevaluation(s) Reevaluation #1: S/p dental abscess I and D, patient feels better. Start the patient on Augmentin for a week and follow-up with dentist. Hypomagnesemia will replete magnesium in the ED. Heme concentration also noted on the lab patient is receiving a L of LR. Time: 12:28 Medications Administered Discontinued Medications Generic Name Dose Route Start Last Admin Trade Name Kamari PRN Reason Stop Dose Admin Diazepam 2 mg 01/06/25 11:37 01/06/25 11:50 Diazepam 2 Mg Tablet PO 01/06/25 11:38 2 mg ONCE ONE Administration Piperacillin Sod/Tazobactam 50 mls @ 100 mls/hr 01/06/25 11:31 01/06/25 12:27 Sod 3.375 gm/ Sodium Chloride IV 01/06/25 12:00 Infused ONCE ONE Infusion Lidocaine HCl 10 ml 01/06/25 11:32 01/06/25 11:57 Lidocaine Hcl 2 % Mpf 5 Ml Vial SUBCUT 01/06/25 11:33 10 ml ONCE ONE Administration Medical Decision Making Differential Diagnosis Differential Diagnoses: The differential diagnosis associated with the presentation includes (Dental abscess with facial cellulitis, severe anemia, electrolyte derangement) Admission/Observation Consideration of admission/observation: Escalation of care including admission/observation considered Lab Data [facility] Lab Attestation statement: I reviewed the patient's lab results. 01/06/25 11:22 01/06/25 11:22 Labs: Lab Results 01/06/25 Range/Units 11:22 WBC 8.7 (4.8-10.8) X10*3/uL RBC 6.01 H (4.60-5.80) X10*6/uL Hgb 18.2 H (14.0-18.0) g/dl Hct 49.7 (42.0-52.0) % MCV 82.7 (80.0-98.0) fL MCH 30.3 (27.0-33.0) pg MCHC 36.6 H (31.0-36.0) g/dl RDW 13.1 (11.0-16.0) % Plt Count 285 (160-400) X10*3/uL MPV 11.0 (9.4-12.4) fL Immature Gran % (Auto) 0.2 (0.0-0.4) % Neut % (Auto) 62.5 (45-73) % Lymph % (Auto) 26.5 (20-40) % [place] % (Auto) 9.6 (2-11) % Eos % (Auto) 0.7 (0-4) % Baso % (Auto) 0.5 (0-2) % Lymph # (Auto) 2.3 (1.2-4.9) X10*3/uL [place] # (Auto) 0.8 (0.1-1.2) X10*3/uL Eos # (Auto) 0.1 (0.0-0.4) X10*3/uL Baso # (Auto) 0.0 (0.0-0.2) X10*3/uL Abs Immat Gran (auto) 0.02 (0.00-0.03) X10*3/uL Absolute Neuts (auto) 5.5 (2.0-8.3) x10*3/uL Absolute Nucleated RBC 0.000 (0.0-0.012) X10*3/uL Nucleated RBC % (auto) 0.0 (0.0-0.2) /100WBC ESR 20 H (0-15) MM/HR Sodium 136 (135-145) mmol/L Potassium 3.8 (3.3-5.1) mmol/L Chloride 97 (96-108) mmol/L Carbon Dioxide 20 L (22-29) mmol/L Anion Gap 23 H (12-20) BUN 6 L (9-16) mg/dL Creatinine 0.95 (0.5-1.4) mg/dL Estim Creat Clear Calc 95.7 Estimated GFR > 60 Random Glucose 240 H (60-115) mg/dL Calcium 10.1 D (8.4-10.2) mg/dL Magnesium 1.4 L* (1.6-2.6) mg/dL Total Bilirubin 1.1 H (0.0-1.0) mg/dL AST 42 H (5-37) U/L ALT 70 H (0-40) U/L Alkaline Phosphatase 109 (39-117) U/L C-Reactive Protein 5.21 H (< or = 0.50) mg/dL Total Protein 9.0 H (6.5-8.0) g/dL Albumin 4.8 (3.5-5.0) g/dL Procedures Abscess I/D Site: oral (Next to the right lower 2nd molar tooth) Side (if applicable): right Sedation/analgesia: other (Valium 2 mg orally for anxiety.) Local Anesthetic: lidocaine 2% Amount of anesthesia used (mL): 7 Technique: incised with blade Amount of fluid expressed (mL): 4 Sent for culture/gram staining?: No Irrigation: Yes Packing used?: none Discharge Plan Discharge Clinical Impression: Dental abscess, Cellulitis of face, Hypomagnesemia Patient Disposition: Home, Self-Care Instructions: Dental Abscess (ED) Additional Instructions: Call your dentist and make an appointment in 5-7 days Prescriptions: New amoxicillin-pot clavulanate 875-125 mg tablet 1 tab PO BID Qty: 14 0RF No Action amoxicillin 500 mg capsule 500 mg PO BID Qty: 20 0RF amoxicillin-pot clavulanate 875-125 mg tablet 1 tab PO BID Qty: 14 0RF prednisone 50 mg tablet 50 mg PO DAILY Qty: 5 0RF Referrals: Abraham Prieto DMD [Dentist, Dentistry] Print Language: Cypriot
[2025-01-06] MEDS: diazePAM 2 MG TABLET PO (11:50)
[2025-01-06] MEDS: Lidocaine HCl 2 % MPF 5 ML VIAL 10 ML SUBCUT (11:57)
[2025-01-06] MEDS: Piperacillin Sodium/Tazobactam 3.375 GM in 0.9 % Sodium Chloride 50 ML IV (11:57)
[2025-01-06 12:04] LABS: Alanine Aminotransferase 70 U/L (0-40); Albumin Level 4.8 g/dL (3.5-5.0); Alkaline Phosphatase 109 U/L (39-117); Anion Gap 23 (12-20); Aspartate Amino Transferase 42 U/L (5-37); Bilirubin Total 1.1 mg/dL (0.0-1.0); Blood Urea Nitrogen 6 mg/dL (9-16); C Reactive Protein 5.21 mg/dL (< or = 0.50); Calcium 10.1 mg/dL (8.4-10.2); Carbon Dioxide 20 mmol/L (22-29); Chloride 97 mmol/L (96-108); Creatinine Clr Calc Pharmacy 95.7; Estimated Glomerular Filt Rate > 60; Glucose Random 240 mg/dL (60-115); Magnesium 1.4 mg/dL (1.6-2.6); Potassium 3.8 mmol/L (3.3-5.1); Sodium 136 mmol/L (135-145)
[2025-01-06 12:08] LABS: Erythrocyte Sedimentation Rate 20 MM/HR (0-15)
[2025-01-06] MEDS: Magnesium Sulfate/H2O 2 GM/50 ML PIGGYBACK IV (12:37)
[2025-01-06] MEDS: Lactated Ringers 1,000 ML 999 ML IV (12:40)
[2025-01-06 13:57] VITALS: BP 134/84; PULSE 97; RESP 20; TEMP 36.3; O2SAT 98
== END 2025-01-06 13:58 | disposition home or self-care (01) ==
PROVIDERS: Physician Assistant Medical; Emergency Provider Emergency Medicine
DX: K04.7 Periapical abscess without sinus (principal); E83.42 Hypomagnesemia; L03.211 Cellulitis of face; Z79.899 Other long term (current) drug therapy
CPT/HCPCS: 36415; 80053; 83735; 85025; 85652; 86140; 87040; 96365; 96367; 99284; J2003; J2543; J3475; J7120